=== PATIENT | female | born 1990 | race Caucasian/White ===

== ENCOUNTER 2021-12-05 06:09 | Emergency (ER) | payer BC ==
[~2021-12-05 06:09] MED LIST: CLARITIN10 MG PO; COLACE 100MG C100 MG PO; IBUPROFEN600 MG PO; LABETALOL HCL100 MG PO; LORTAB 5-325 M1 EACH PO; PREDNISONE20 MG PO; PRENATAL VITAM1 EAC5 PO; PROAIR HFA8.5 GM INH; TESSALON PERLE100 MG PO; VENTOLIN HFA 66.7 GM INH; ZANTAC150 MG PO
[2021-12-05] MEDS ORDERED: ONDANSETRON ODT4 MG SL (07:14)
[2021-12-05] MEDS ORDERED: CEPHALEXIN500 M1 PO (07:14)
== END 2021-12-05 07:34 | disposition home or self-care (01) ==
LOC: ER1 06:09
DX: R30.0 Dysuria (principal); R19.7 Diarrhea, unspecified; R11.0 Nausea; J45.909 Unspecified asthma, uncomplicated; Z88.1 Allergy status to other antibiotic agents
CPT/HCPCS: 81001; 84703; 87086; 99284